=== PATIENT | female | born 1990 | race Caucasian/White ===

== ENCOUNTER 2018-10-30 05:59 | Emergency (ER) | payer OTHER ==
[~2018-10-30] VITALS: Ht 160 cm; Wt 52.9 kg
[2018-10-30 06:15] VITALS: Ht 160 cm; Wt 52.9 kg
[2018-10-30] MEDS ORDERED: SULF1TAB31 PO (06:59)
[2018-10-30] MEDS ORDERED: CEPH-443 PO (06:59)
[2018-10-30] MEDS ORDERED: LIDOCAINE 4% CR TOP ONE (07:00)
[2018-10-30] MEDS ORDERED: LIDOCAINE 1% (MDV) 20 ML INJ SC ONE (07:00)
--- NOTE | 2018-10-30 07:44 | ERD ---
ER Documentation Chief Complaint Chief Complaint 2 closed abscesses just above L-AC, been there x 2 days HPI 28-year-old female with history of IV drug use and hepatitis C presents with com plaint of abscesses over her left arm. States that they have been here for 2 days. States that she understands that they are associated with IV drug use. States they are tender to palpation. Denies any treatments. Denies any fevers chills, nausea, vomiting, diarrhea. ROS All systems reviewed and are negative except as per history of present illness. Medications Home Meds Active Scripts Lidocaine (Lmx 5) 30 Gm Cream.gm., 30 GM TP Q3H for pain, #1 BOTTLE Prov:MYRNA COLLIER 10/30/18 Ibuprofen* (Motrin*) 600 Mg Tab, 600 MG PO Q6 for pain, #30 TAB Prov:MYRNA COLLIER 10/30/18 Sulfamethoxazole/Trimethoprim* (Bactrim Ds* Tablet) 1 Each Tablet, 1 TAB PO BID for abscess, #14 TAB Prov:MYRNA COLLIER 10/30/18 Cephalexin* (Keflex*) 500 Mg Capsule, 500 MG PO QID for abscess for 7 Days, CAP Prov:MYRNA COLLIER 10/30/18 Allergies Allergies: Coded Allergies: No Known Allergy (Unverified , 10/30/18) PMhx/Soc Hx Miscellaneous Medical Probl: Yes (Hep C) Hx Alcohol Use: Yes Hx Substance Use: Yes (Marijuana) Hx Tobacco Use: No Smoking Status: Never smoker FmHx Family History: No diabetes, No coronary disease, No other Physical Exam Vitals Vital Signs Date Temp Pulse Resp B/P (MAP) Pulse Ox O2 O2 Flow FiO2 Time Delivery Rate 10/30/18 97.5 98 18 113/63 100 06:15 (80) Physical Exam Const: No acute distress Head: Atraumatic Eyes: Normal Conjunctiva ENT: Normal External Ears, Nose and Mouth. Neck: Full range of motion. No meningismus. Resp: Clear to auscultation bilaterally Cardio: Regular rate and rhythm, no murmurs Abd: Soft, non tender, non distended. Normal bowel sounds Skin: No petechiae or rashes Back: No midline or flank tenderness Ext: Approximately 3 cm mass noted over the dorsal aspect of left forearm. Mass is nonfluctuant, erythematous, tender to palpation, and indurated. There is no lymphatic streaking noted. Distal pulses and sensation are intact. Distal range of motion is intact. Neur: Awake and alert Psych: Normal Mood and Affect Results 24 hrs Current Medications Medications Dose Sig/Damaris Start Time Status Last (Trade) Ordered Route PRN Stop Time Admin Dose Reason Admin Lidocaine 1 applic ONCE ONCE 10/30/18 DC (Lmx 4% Plus) TOP 07:00 10/30/18 07:01 Lidocaine 20 ml ONCE ONCE 10/30/18 DC (Xylocaine SC 07:00 1% (Mdv) 20 10/30/18 07:01 ml) Procedures/MDM 28-year-old female with history of IV drug use and hepatitis C presents with complaint of abscesses over her left arm. States that they have been here for 2 days. States that she understands that they are associated with IV drug use. States they are tender to palpation. Denies any treatments. Denies any fevers chills, nausea, vomiting, diarrhea. 1% lidocaine injection was injected into area and small incision was made but there was no drainage. Patient advised that abscesses were not ready to be drained yet and should be using antibiotic treatment as well as warm compresses. I will suspicion for sepsis, systemic symptoms, or any other emergent condition. Patient advised to return in 1 week for wound check. Patient discharged with strict ER precautions. Patient advised to follow up with PMD. All questions answered at discharge. Departure Diagnosis: Primary Impression: Abscess Condition: Stable Referrals: [facility] YOU HAVE RECEIVED A MEDICAL SCREENING EXAM AND THE RESULTS INDICATE THAT YOU DO NOT HAVE A CONDITION THAT REQUIRES URGENT TREATMENT IN THE EMERGENCY DEPARTMENT. FURTHER EVALUATION AND TREATMENT OF YOUR CONDITION CAN WAIT UNTIL YOU ARE SEEN IN YOUR DOCTORS OFFICE WITHIN THE NEXT 1-2 DAYS. IT IS YOUR RESPONSIBILITY TO MAKE AN APPOINTMENT FOR FOLOW-UP CARE. IF YOU HAVE A PRIMARY DOCTOR --you should call your primary doctor and schedule an appointment IF YOU DO NOT HAVE A PRIMARY DOCTOR YOU CAN CALL OUR PHYSICIAN REFERRAL HOTLINE AT IF YOU CAN NOT AFFORD TO SEE A PHYSICIAN YOU CAN CHOSE FROM THE FOLLOWING [facility] [id number] [facility]. [facility] [address] [facility]. [facility] [address] [facility] [address] [facility] [address] [facility]. [facility]. [address] Oct 30, 2018 07:44
[2018-10-30] MEDS ORDERED: IBUP-1542 PO (08:01)
[2018-10-30] MEDS ORDERED: LIDO30CR3 TP (08:02)
== END 2018-10-30 08:20 | disposition home or self-care (01) ==
LOC: FTE 05:59
DX: L02.414 Cutaneous abscess of left upper limb (principal)
CPT/HCPCS: 10060; Z7502; Z7610